=== PATIENT | female | born 1965 | race Caucasian/White ===

== ENCOUNTER 2022-10-07 08:00 | Outpatient (CLI) | payer MEDICAID | END 2022-10-07 23:59 | disposition home or self-care (01) | LOC: LAB.N 08:00 | PROVIDERS: ATTEND Registered Nurse | DX: R30.0 Dysuria (principal) | CPT/HCPCS: 87086 ==

== ENCOUNTER 2022-10-31 11:00 | Outpatient (CLI) | payer MEDICAID ==
[2022-10-31 17:40] LABS: EOSINOPHILS # (AUTO) 0.2 10^3/uL (0.0-0.7); EOSINOPHILS % (AUTO) 3.8 %; HCT - HEMATOCRIT 40.8 % (37.0-47.0); HGB - HEMOGLOBIN 13.4 g/dL (12.0-16.0); LYMPHOCYTES # (AUTO) 1.6 10^3/uL (1.5-3.5); LYMPHOCYTES % (AUTO) 38.5 %; MEAN CORPUSCULAR HEMOGLOBIN 30.6 pg (27.0-31.0); MEAN CORPUSCULAR HGB CONC 32.8 g/dL (32.0-36.0); MEAN CORPUSCULAR VOLUME 93.2 fL (81.0-99.0); MEAN PLATELET VOLUME 11.9 fL (7.9-10.8); MONOCYTES # (AUTO) 0.4 10^3/uL (0.0-1.0); MONOCYTES % (AUTO) 9.6 %; NEUTROPHILS % (AUTO) 47.1 %; PLT - PLATELET COUNT 224 10^3/uL (130-450); RED BLOOD COUNT 4.38 10^6/uL (4.20-5.40); RED CELL DISTRIBUTION WIDTH 11.9 % (12.0-15.0); WHITE BLOOD COUNT 4.2 x10^3/uL (4.8-10.8)
[2022-10-31 17:58] LABS: ALBUMIN 4.2 g/dL (3.2-5.5); ALBUMIN/GLOBULIN RATIO 1.5 (1.0-2.2); BILIRUBIN,TOTAL 0.6 mg/dL (0.2-1.0); CALCIUM 9.3 mg/dL (8.5-10.3); CREATININE 0.8 mg/dL (0.4-1.0)
[2022-11-01 07:10] LABS: VARICELLA-ZOSTER AB IGG 622 index (Immune >165)
[2022-11-02 12:08] LABS: VARICELLA-ZOSTER AB IGM <0.91 index (0.00-0.90)
== END 2022-10-31 11:15 | disposition home or self-care (01) ==
LOC: LAB.N 11:00
PROVIDERS: ATTEND Registered Nurse
DX: R21 Rash and other nonspecific skin eruption (principal)
CPT/HCPCS: 36415; 80053; 85025; 86787; 87252

== ENCOUNTER 2022-12-27 11:21 | Outpatient (CLI) | payer MEDICAID ==
--- NOTE | 2022-12-27 17:13 | XRAY Report ---
PROCEDURE: Abdomen 2 View X-Ray INDICATIONS: FLANK PAIN RIGHT TECHNIQUE: 2 views of the abdomen were acquired. COMPARISON: None. FINDINGS: Surgical changes and devices: None. Bowel: No pneumoperitoneum. The bowel gas pattern demonstrates minimal scattered small bowel fluid levels. Mild to moderate colonic stool. Soft tissues: No masses; visualized solid organ contours appear normal in size. No suspicious abdom inal calcifications. Bones: No suspicious bony abnormalities. IMPRESSION: Scattered mild small bowel fluid levels. This could represent ileus versus developing partial small b owel obstruction. Reviewed by: Radha Hernandez MD on 12/27/2022 5:11 PM PDT Approved by: Radha Hernandez MD on 12/27/2022 5:11 PM PDT Station ID: [id number]
== END 2022-12-27 11:22 | disposition home or self-care (01) ==
LOC: DI 11:21
PROVIDERS: ATTEND Physician Assistant
DX: R10.9 Unspecified abdominal pain (principal)

== ENCOUNTER 2023-05-29 11:49 | Emergency (ER) | payer MEDICAID ==
[2023-05-29 12:09] VITALS: BP 156/94; O2SAT 100
[2023-05-29 12:29] LABS: BASOPHILS % (AUTO) 1.1 %; EOSINOPHILS # (AUTO) 0.1 10^3/uL (0.0-0.7); EOSINOPHILS % (AUTO) 2.3 %; HCT - HEMATOCRIT 40.3 % (37.0-47.0); HGB - HEMOGLOBIN 13.2 g/dL (12.0-16.0); LYMPHOCYTES # (AUTO) 1.2 10^3/uL (1.5-3.5); LYMPHOCYTES % (AUTO) 35.6 %; MEAN CORPUSCULAR HEMOGLOBIN 30.2 pg (27.0-31.0); MEAN CORPUSCULAR HGB CONC 32.8 g/dL (32.0-36.0); MEAN CORPUSCULAR VOLUME 92.2 fL (81.0-99.0); MEAN PLATELET VOLUME 10.6 fL (7.9-10.8); MONOCYTES # (AUTO) 0.3 10^3/uL (0.0-1.0); MONOCYTES % (AUTO) 9.2 %; NEUTROPHILS # (AUTO) 1.8 10^3/uL (1.5-6.6); NEUTROPHILS % (AUTO) 51.8 %; PLT - PLATELET COUNT 216 10^3/uL (130-450); RED BLOOD COUNT 4.37 10^6/uL (4.20-5.40); WHITE BLOOD COUNT 3.5 x10^3/uL (4.8-10.8)
[2023-05-29 12:46] LABS: TROPONIN I HIGH SENSITIVITY 2.8 ng/L (2.3-14.8)
[2023-05-29 12:51] LABS: ALBUMIN 4.4 g/dL (3.2-5.5); ALBUMIN/GLOBULIN RATIO 2.3 (1.0-2.2); BILIRUBIN,TOTAL 0.5 mg/dL (0.2-1.0); CALCIUM 9.2 mg/dL (8.5-10.3); CREATININE 0.7 mg/dL (0.6-1.3); POTASSIUM 3.8 mmol/L (3.5-4.5); TOTAL PROTEIN 6.3 g/dL (6.4-8.9)
--- NOTE | 2023-05-29 13:13 | XRAY Report ---
PROCEDURE: Chest 1V INDICATIONS: Chest pain TECHNIQUE: One view of the chest was acquired. COMPARISON: None. FINDINGS: Surgical changes and devices: None. Lungs and pleura: No pleural effusions or pneumothorax. Lungs are clear. Mediastinum: Mediastinal contours appear normal. Heart size is normal. Bones and chest wall: No suspicious bony lesions. Overlying soft tissues appear unremarkable. IMPRESSION: No acute cardiopulmonary process. Reviewed by: Myla Mckeon MD, PhD on 05/29/2023 1:11 PM PST Approved by: Myla Mckeon MD, PhD on 05/29/2023 1:11 PM [facility] Station ID: [id number]
--- NOTE | 2023-05-29 15:16 | ED Physician Documentation ---
ED Addendum - Addendum Addendum: 05/29/23 15:15 The patient left without being seen. The EKG had been evaluated at the time just after was done in triage. There were no ischemic changes. Chest x-ray and blood test were done by nursing triage. Chest x-ray did not show any acute abnormalities in the basic blood chemistry panel was good with a normal troponin. As such the patient does not have any obvious acute severe abnormalities on basic testing. Again the patient left without being seen and without provider evaluation.
== END 2023-05-29 14:45 | disposition left against medical advice (07) ==
LOC: ED 11:49
DX: Z53.21 Procedure and treatment not carried out due to patient leaving prior to being seen by health care provider (principal)
CPT/HCPCS: 36415; 80053; 83690; 84484; 85025; 93005